=== PATIENT | male | born 1980 | race Hispanic/Latino ===

== ENCOUNTER 2017-04-01 22:36 | Emergency (ER) | payer MEDICAID ==
[2017-04-01 22:53] VITALS: BP 146/92
[2017-04-01 23:15] LABS: Basophils % (Auto) 0.7 % (0.0-1.8); Eosinophils % (Auto) 1.1 % (0.0-4.3); Hematocrit 47.6 % (35.5-45.6); Hemoglobin 16.1 gm/dl (11.8-15.2); Mean Corpuscular HGB Conc 34 % (32-34); Mean Corpuscular Hemoglobin 29 pg (28-32); Mean Corpuscular Volume 87 fl (84-94); Platelet Count 285 K/mm3 (140-440); Red Blood Count 5.47 M/mm3 (3.65-5.03); Red Cell Distribution Width 13.7 % (13.2-15.2); White Blood Count 13.4 K/mm3 (4.5-11.0)
--- NOTE | 2017-04-01 23:30 | Emergency Department Report ---
HPI - General Chief Complaint: Altered Mental Status Time Seen by Provider: 04/01/17 23:09 - HPI HPI: Room 1 The patient is a 37-year-old male presenting with a chief complaint of syncope. The patient reportedly had at least 4 syncopal episodes today. Family states the first episode occurred at approximately 06:00 while seated in a patient complaint of feeling cold and became diaphoretic and dizzy. Patient lost consciousness for approximately 1 minute. There were no convulsions. Family shake the patient can awaken him and he came to. The patient had a second syncopal episode at approximately 10:00 and was unconscious for approximately 3 minutes and this time did not exhibit diaphoresis. The patient had a third syncopal episode at 10:45 while standing he felt for. Family states the patient did complain of chest pain and left upper extremity pain. The patient had a fourth syncopal episode this evening at approximately 22:00 and this is when EMS was called. EMS administered Narcan 2 mg IV "as a diagnostic." When asked how he is feeling currently the patient states he feels "tired, dizzy and irritated." The patient asked what was EMS administered to him and he appeared irritated that it was given. Patient complains of chest pain currently from where he received a sternal rub Location: [employer] Duration: [See above] Quality: Syncope Severity: Severe Modifying factors: [see above] Context: [see above] Mode of transportation: [not driving] ED Past Medical Hx - Past Medical History Previous Medical History?: Yes Hx Hypertension: Yes - Surgical History Past Surgical History?: No - Family History Family history: no significant - Social History Smoking Status: Current Every Day Smoker (1 pack per day) Substance Use Type: None (denies illicit drug use) ED Review of Systems ROS: Stated complaint: SYNCOPE Other details as noted in HPI Constitutional: diaphoresis, malaise, other (irritated) Cardiovascular: chest pain, syncope. denies: palpitations Musculoskeletal: myalgia (left upper extremity) Neurological: other (syncope) Physical Exam - Physical Exam Vital Signs: Vital Signs 04/01/17 22:49 Temperature 98.1 F Pulse Rate 86 Respiratory 14 Rate Blood Pressure 146/92 [Left] O2 Sat by Pulse 98 Oximetry Physical Exam: GENERAL: The patient is well-developed well-nourished male lying on stretcher not appearing to be in acute distress. [] HEENT: Normocephalic. Atraumatic. Extraocular motions are intact. Patient has moist mucous membranes. NECK: Supple. No meningitic signs are noted. Trachea midline CHEST/LUNGS: Clear to auscultation. There is no respiratory distress noted. HEART/CARDIOVASCULAR: Regular. There is no tachycardia. There is no gallop rub or murmur. ABDOMEN: Abdomen is soft, nontender. Patient has normal bowel sounds. There is no abdominal distention. SKIN: There is no rash. There is no edema. There is no diaphoresis. NEURO: The patient is awake, alert, and oriented. The patient is cooperative. The patient has no focal neurologic deficits. The patient has normal speech. Cranial nerves II through XII grossly intact, no drift MUSCULOSKELETAL: TThere is no evidence of acute injury. ED Course Vital Signs 04/01/17 22:49 Temperature 98.1 F Pulse Rate 86 Respiratory 14 Rate Blood Pressure 146/92 [Left] O2 Sat by Pulse 98 Oximetry ED Medical Decision Making - Lab Data Result diagrams: 04/01/17 23:00 04/01/17 23:00 Laboratory Tests 04/01/17 04/01/17 04/01/17 23:00 23:00 23:00 WBC 13.4 H RBC 5.47 H Hgb 16.1 H Hct 47.6 H MCV 87 MCH 29 MCHC 34 RDW 13.7 Plt Count 285 Lymph % (Auto) 10.6 L [place] % (Auto) 5.7 Eos % (Auto) 1.1 Baso % (Auto) 0.7 Lymph # 1.4 [place] # 0.8 Eos # 0.1 Baso # 0.1 Seg Neutrophils % 81.9 H Seg Neutrophils # 11.0 H Sodium 143 Potassium 3.9 Chloride 103.7 Carbon Dioxide 26 Anion Gap 17 BUN 6 L Creatinine 0.9 Estimated GFR > 60 BUN/Creatinine Ratio 7 Glucose 100 Lactic Acid 1.70 Calcium 9.1 Magnesium 1.90 Total Bilirubin 0.60 AST 15 ALT 15 Alkaline Phosphatase 41 Ammonia Total Creatine Kinase CK-MB (CK-2) CK-MB (CK-2) Rel Index Troponin T Total Protein 6.2 L Albumin 4.0 Albumin/Globulin Ratio 1.8 TSH Salicylates Acetaminophen Plasma/Serum Alcohol 04/01/17 04/01/17 04/01/17 23:00 23:00 23:00 WBC RBC Hgb Hct MCV MCH MCHC RDW Plt Count Lymph % (Auto) [place] % (Auto) Eos % (Auto) Baso % (Auto) Lymph # [place] # Eos # Baso # Seg Neutrophils % Seg Neutrophils # Sodium Potassium Chloride Carbon Dioxide Anion Gap BUN Creatinine Estimated GFR BUN/Creatinine Ratio Glucose Lactic Acid Calcium Magnesium Total Bilirubin AST ALT Alkaline Phosphatase Ammonia Total Creatine Kinase CK-MB (CK-2) CK-MB (CK-2) Rel Index Troponin T Total Protein Albumin Albumin/Globulin Ratio TSH 0.665 Salicylates < 0.3 L Acetaminophen < 15.0 Plasma/Serum Alcohol 04/01/17 04/01/17 04/01/17 23:00 23:35 23:35 WBC RBC Hgb Hct MCV MCH MCHC RDW Plt Count Lymph % (Auto) [place] % (Auto) Eos % (Auto) Baso % (Auto) Lymph # [place] # Eos # Baso # Seg Neutrophils % Seg Neutrophils # Sodium Potassium Chloride Carbon Dioxide Anion Gap BUN Creatinine Estimated GFR BUN/Creatinine Ratio Glucose Lactic Acid Calcium Magnesium Total Bilirubin AST ALT Alkaline Phosphatase Ammonia 37.0 Total Creatine Kinase 105 CK-MB (CK-2) 2.0 CK-MB (CK-2) Rel Index 1.9 Troponin T < 0.010 Total Protein Albumin Albumin/Globulin Ratio TSH Salicylates Acetaminophen Plasma/Serum Alcohol < 0.01 - EKG Data -: EKG Interpreted by Me EKG shows normal: sinus rhythm Rate: normal - EKG Data When compared to previous EKG there are: previous EKG unavailable Interpretation: other (no ischemic changes seen) - Radiology Data Radiology results: report reviewed (CT head), image reviewed (CT head) FINAL REPORT EXAM: CT HEAD/BRAIN WO CON HISTORY: syncope TECHNIQUE: Routine axial imaging was obtained of the brain without IV contrast. FINDINGS: There are no attenuation abnormalities. The ventricular system is appropriate in size and is symmetric. The visualized sinuses are clear. The mastoid air cells are well pneumatized. The calvarium appears intact. IMPRESSION: Within normal limits. Transcribed By: RB Dictated By: RENNY CANELA MD Electronically Authenticated By: RENNY CANELA MD Signed Date/Time: 04/01/172008 DD/ 08 TD/TT: 04/01/172008 - Medical Decision Making I explained to the patient and family at length my concern for potential fatal causes of syncope. I had explained to them even if his workup has been negative in the emergency department I will still recommend admission to the hospital. Patient and family verbalized understanding - Differential Diagnosis substance abuse, dysrhythmia, ICH, Critical care attestation.: If time is entered above; I have spent that time in minutes in the direct care of this critically ill patient, excluding procedure time. ED Disposition Clinical Impression: Syncope Disposition: ELOPED Is pt being admited?: Yes Does the pt Need Aspirin: Yes Condition: Undetermined Instructions: Syncope (ED) Time of Disposition: 01:25 (patient eloped with family. Patient and family understood that I recommended admission to the hospital)
[2017-04-01 23:40] LABS: Alanine Aminotransferase 15 units/L (7-56); Albumin/Globulin Ratio 1.8 %; Alkaline Phosphatase 41 units/L (35-129); Anion Gap 17 mmol/L; BUN/Creatinine Ratio 7; Blood Urea Nitrogen 6 mg/dL (9-20); Calcium 9.1 mg/dL (8.4-10.2); Carbon Dioxide 26 mmol/L (22-30); Chloride 103.7 mmol/L (98-107); Glucose 100 mg/dL (75-100); Potassium 3.9 mmol/L (3.6-5.0); Sodium 143 mmol/L (137-145); Total Protein 6.2 g/dL (6.3-8.2)
--- NOTE | 2017-04-02 00:18 | Cat Scan Report ---
FINAL REPORT EXAM: CT HEAD/BRAIN WO CON HISTORY: syncope TECHNIQUE: Routine axial imaging was obtained of the brain without IV contrast. FINDINGS: There are no attenuation abnormalities. The ventricular system is appropriate in size and is symmetric. The visualized sinuses are clear. The mastoid air cells are well pneumatized. The calvarium appears intact. IMPRESSION: Within normal limits.
[2017-04-02 00:23] LABS: Creatine Kinase 105 units/L (55-170)
== END 2017-04-02 01:30 | disposition left against medical advice (07) ==
LOC: ED 22:36
DX: R55 Syncope and collapse (principal); I10 Essential (primary) hypertension
CPT/HCPCS: 36415; 70450; 80053; 82140; 82550; 82553; 83735; 84443; 84484; 85025; 93005; 93010; 99285; G0480; 80320